=== PATIENT | female | born 1990 | race Caucasian/White ===

== ENCOUNTER → 2017-11-20 16:56 | Outpatient (CLI) | payer MEDICAID, SELFPAY ==
[2017-11-23 12:59] LABS: HPV Reflexed? NOT INDICATED
== END ==
PROVIDERS: Visit Provider Obstetrics & Gynecology
DX: Z12.4 Encounter for screening for malignant neoplasm of cervix (principal)
CPT/HCPCS: 88175; G0145

== ENCOUNTER 2018-03-19 08:34 | Emergency (ER) | payer MEDICAID, SELFPAY ==
[2018-03-19 08:37] VITALS: BP 151/90; PULSE 110; RESP 16; TEMP 37.1; O2SAT 97; BMI 40.3
--- NOTE | 2018-03-19 09:25 | ED.VISSUMM ---
- ER Visit Summary Date of Service: 03/19/18 Chief Complaint: [Sore throat] History of Present Illness: The patient is a 27 F [presents the emergency department with complaint of sore throat that started 2 days ago. Patient's had a fever over 100 home. Patient denies cough. Patient complains of pain with swallowing. Patient states that she was at a friend's house over the weekend and was around their 3 children however she is not sure if they were ill.] Physical Examination: [HEENT-PERRLA, EOMI. Cranial nerves II through XII grossly intact. TMs clear. Mucous membranes moist. Patient has faint posterior pharyngeal erythema. Tonsils are absent. Uvula midline. No trismus. Patient has some mild anterior cervical adenopathy slightly tender. Cardiovascular-regular rate and rhythm without murmur or ectopy Lungs-clear to auscultation, chest wall stable without crepitus or subcu emphysema Abdomen-normoactive bowel sounds, soft, nontender, no rebound or rigidity, no peritoneal signs. Extremities-intact ?4, normal range of motion, normal pulses, atraumatic] Test Results: [Rapid strep screen was positive] Emergency Department Course and Treatment: Patient was given amoxicillin in the emergency department [] Treatment Plan: [Amoxicillin and 10 [place] for severe pain as needed.] Disposition: [Discharged home in stable condition. Patient advised to return if difficulty swallowing or condition should worsen in any way. Impression: [Strep pharyngitis] This note was generated with Amara dictation software. It may contain incorrect words, spelling, and punctuation that were not noted in review of the chart prior to signing ED Disposition - Plan for ED Patient: Chief Complaint: Sore Throat Referrals: Hany Gonzalez MD [Primary Care Provider] -
--- NOTE | 2018-03-19 09:28 | DCINST.ED_ITS ---
ED Disposition - Plan for ED Patient: Chief Complaint: Sore Throat Instructions: ED Strep Pharyngitis Conf Prescriptions: Hydrocodone Bitart/Apap 5-325 [[place] 5MG-325MG] 1 tab PO Q4H PRN PRN 2 Days #10 tab PRN Reason: Pain Amoxicillin 500 mg PO TID #30 tab Referrals: Hany Gonzalez MD [Primary Care Provider] - 5-7 Days
[2018-03-19] MEDS: AMOXICILLIN 500 MG CAPSULE PO (09:31)
== END 2018-03-19 09:32 | disposition home or self-care (01) ==
PROVIDERS: Emergency Provider Emergency Medicine; Family Provider Family Medicine; PCP Family Medicine
DX: J02.0 Streptococcal pharyngitis (principal); Z72.0 Tobacco use
CPT/HCPCS: 87077; 87880; 99283

== ENCOUNTER 2019-01-05 17:23 | Emergency (ER) | payer MEDICAID, SELFPAY ==
[2019-01-05 17:24] VITALS: BP 159/79; PULSE 16; RESP 85; TEMP 36.9; O2SAT 98; BMI 40.3
--- NOTE | 2019-01-05 18:14 | ED.VIS.GEN ---
History of Present Illness Chief Complaint: Cold Sx Informant: Patient Onset: Days - Onset of illness 7 days ago Context: Sudden Onset Timing: Continuous Quality: Upper respiratory Location: Respiratory Current Severity: Mild Maximum Severity: Moderate Worsened by: Smoking Relieved by: Nothing Associated Symptoms: Ill contacts, URI symptoms, no fever Narrative: Patient is a 28-year-old who smokes 1 pack/day. She is been over the past 7 days. She reports rhinorrhea, congestion, postnasal drainage, sore throat, change in voice and cough which is essentially nonproductive. She denies fever or chills. She denies headache. She denies ocular, visual or auditory symptoms. She has no other complaints. She states she felt so ill that she left work today. Prior similar symptoms: No Recent Illness/Hospitalization: No - Past Medical History (1) No significant past medical history Status: Acute Past Medical History - Allergies and Home Meds Allergies/Adverse Reactions: Allergies No Known Allergies Allergy (Verified 01/05/19 17:53) Primary Care Physician: Hany Gonzalez MD [Primary Care Provider] - Prior records reviewed: Yes Lives: With Family Smoking Status: Current every day smoker Alcohol: Rare Drugs: None Review of Systems General: Reports: Malaise. Denies: Chills, Fever, Subjective, Sweats, Weight loss Eyes: Denies: Visual changes - bilaterally, Blurred Vision - bilaterally, Diplopia ENT: Reports: Rhinorrhea, Sore throat. Denies: Bilateral ear pain Cardiovascular: Denies: Chest pain, Palpitations Respiratory: Reports: Cough. Denies: Dyspnea, Dyspnea on exertion, Orthopnea, Paroxysmal nocturnal dyspnea Gastrointestinal: Denies: Abdominal pain, Nausea, Vomiting, Diarrhea, Melena, Hematochezia Musculoskeletal: Denies: Myalgias, Arthralgias, Neck pain, Back pain, Extremity Pain Neurological: Denies: Headache, Weakness, Parasthesia, Numbness Hematologic: Denies: Easy bruising, Easy bleeding Allergy: Denies: Uticaria, Swelling of the mouth Physical Exam Vital Signs/Narrative: Vital Signs Temp Pulse Resp BP Pulse Ox 01/05/19 17:24 98.4 F 16 L 85 H 159/79 H 98 Inital Vital Signs reviewed: Yes General: Well nourished, Well developed, Obese, No Acute Distress Head: Normocephalic, Atraumatic Eyes: Perrl, EOMI. Negative for: Pale conjunctiva, Scleral icterus ENT: Moist mucous membranes, No rhinorrhea. Negative for: Sinus tenderness Neck: Supple, Nontender, No lymphadenopathy, No JVD Cardiovascular: Regular rate, Regular rhythm, No murmurs, Normal S1, Normal S2 Respiratory: No distress, CTA bilaterally, Chest nontender Skin: Normal color, No rash Neurological: Alert, Oriented x3, Cranial nerves II-XII grossly intact, Normal Strength, Normal Sensation Psychological: Normal affect, Normal Mood Diagnostic/Tx/Re-eval - Medical Decision Making With normal vital signs and URI symptoms radiologic imaging not indicated. Patient was informed she may be ill for another 7-10 days. She was told because she is a smoker she may have a cough for 4 weeks. She was informed since this is a viral infection and antibiotics are not indicated. She was given a note to excuse her from work today. ED Disposition - Plan for ED Patient: Disposition: Home or Assisted Living Diagnosis: Viral upper respiratory tract infection with cough Instructions: ED Upper Resp Infec No Abx Tx Referrals: Hany Gonzalez MD [Primary Care Provider] - 10-14 Days if not better
[2019-01-05 18:28] VITALS: BP 148/92; PULSE 94; RESP 16; O2SAT 97
--- NOTE | 2019-01-05 18:37 | ED.RN ---
PT UPSET THAT SHE WASN'T GIVEN ANY MEDICATIONS OR TX TO HELP HER COUGH. DR HURD WAS CONSULTED ABOUT CASE. NO ADDITIONAL ORDERS PLACED. PT ENCOURAGED TO FOLLOW UP WITH PCP AND RETURN IF ANY ADDITION S/S OCCUR. Samy HOPKINS RN [id number]
== END 2019-01-05 18:39 | disposition home or self-care (01) ==
PROVIDERS: Emergency Provider Emergency Medicine
DX: J06.9 Acute upper respiratory infection, unspecified (principal); F17.200 Nicotine dependence, unspecified, uncomplicated
CPT/HCPCS: 99282

== ENCOUNTER → 2019-03-03 16:31 | Outpatient (CLI) | payer MEDICAID, SELFPAY ==
[2019-03-11 10:35] LABS: HPV HC, High Risk Negative (Negative)
== END ==
PROVIDERS: Visit Provider Obstetrics & Gynecology
DX: Z12.4 Encounter for screening for malignant neoplasm of cervix (principal)
CPT/HCPCS: 87624; 88175; G0145

== ENCOUNTER 2023-11-23 18:46 | Emergency (ER) | payer MEDICAID, SELFPAY ==
[2023-11-23 18:47] VITALS: BP 134/83; PULSE 85; RESP 18; TEMP 35.8; O2SAT 99; BMI 33.8
--- NOTE | 2023-11-23 19:41 | ED.RN ---
pt reports she does not want to wait in waiting room any longer and will follow up with her own doctor. EKG was completed.
--- OUTSIDE RECORDS SUMMARY | 2023-11-23 19:56 | XMS RPT_ITS | CCD ---
Author Name Unknown Address [address] [place] [address] Organization [facility] Care Team Providers Care Machine Tool Technician Instructor Name Role Phone ELEANOR JAMES Attending Unavailable ELEANOR JAMES Attending Unavailable SANDRA SALINAS Attending Unavailable Results Test Name Value Interpretation Reference Range Facil ity Encounters Encounter Date Encounter Type Care Provider Facility Start: 10-02-2023 End: 10-02-2023 ambulatory SANDRA SALINAS Not Available Start: 07-24-2023 ambulatory ELEANOR JAMES [facility] Start: 07-15-2023 End: 07-16-2023 ambulatory ELEANOR JAMES [facility] Start: 07-15-2023 End: 07-15-2023 Off-Site ELEANOR JAMES [facility] Start: 07-02-2023 ambulatory ELEANOR JAMES Facility :[facility] Payers Date Payer Category Payer Medicaid [id number] 2023 Unknown [id number] 1988 Unknown [id number] 1988 Unknown [id number] 1988 Unknown [id number] 1988 Unknown [id number] Social History Date Type Detail Facility Tobacco smoking status No Smoking Status Entered [facility] Sex Assigned At Female [facility] Progress note 08-28-2021 Note Date & Type Note Facility 08-28-2021 Note HNO ID: [id number] Author: Nancy Moise APRN.ENGINEERING RECRUITER Service: ? Author Type: Nurse Practitioner Type: Progress Notes Filed: 08/28/2021 8:23 PM Note Text: This is an Express Care eVisit note for Olinda Donny Rubi eVisit/Questionnaire reviewed The chief complaint for the visit - Patient presents with: Sinus Problem Recommendations/Treatment plan - See My Chart Message to patient Total time spent: < 5 minutes. Nancy Moise APRN.CNP [facility] Evaluation + Plan note Note Date & Type Note Facility Evaluation + Plan note Future Appointments Appointment Date:07/24/2023 10:00:00 AM Scheduled Provider:ELEANOR OLIVEROS Location:[facility]eds Appointment Type: Video Visit Therapy 60 [facility] Hospital course Narrative Note Date & Type Note Facility Hospital course Narrative No data available for this section [facility] Hospital Discharge instructions Note Date & Type Note Facility Hospital Discharge instructions No data available for this section [facility] Progress note Note Date & Type Note Facility Progress note No data available for this section [facility] Summary Purpose Family History No Family History Records Found No data available for this section No Family History Records FoundNo Family History Records Found Advance Directives No Advanced Directives Records FoundNo Advanced Directives Records FoundNo Advanced Directives Records Found Additional Source Comments INFORMATION SOURCE (unrecogn ized section and content) DATE CREATED AUTHOR AUTHOR'S ORGANIZ ATION 07/24/2023 [facility] DATE CREATED AUTHOR AUTHOR'S ORGANIZ ATION 10/03/2023 [facility] EPIC FOR RECORDS PERTAINING TO PATIENTS WHO ARE OR HAVE BEEN ENROLLED IN A CHEMICAL DEPENDENCY/SUBSTANCEABUSE PROGRAM, SOME INFORMATION MAY BE OMITTED. This clinical summary was aggregated from multiple sources. Caution should be exercised in using it in the provision of clinical care. This summary normalizes information from multiple sources, and as a consequence, information in this document may materially change the coding, format and clinical context of patient data. In addition, data may be omitted in some cases. CLINICAL DECISIONS SHOULD BE BASED ON THE PRIMARY CLINICAL RECORDS. [facility], [facility]. provides no warranty or guarantee of the accuracy or completeness of information in this document.
== END 2023-11-23 19:42 | disposition left against medical advice (07) ==
LOC: ED 19:54
DX: Z53.21 Procedure and treatment not carried out due to patient leaving prior to being seen by health care provider (principal)
CPT/HCPCS: 93005